=== PATIENT | male | born 1955 | race Caucasian/White ===

== ENCOUNTER 2022-09-10 10:58 | Emergency (ER) | payer OTHER ==
[2022-09-10 11:25] VITALS: BP 170/92; PULSE 86; RESP 19; TEMP 98.1; BMI 29.9
== END 2022-09-10 12:19 | disposition left against medical advice (07) ==
LOC: JERFT 10:58
DX: M25.512 Pain in left shoulder (principal); V89.2XXA Person injured in unspecified motor-vehicle accident, traffic, initial encounter
CPT/HCPCS: 99281-25